=== PATIENT | female | born 1965 | race Caucasian/White ===

== ENCOUNTER 2018-08-20 07:41 | Day surgery (SDC) | payer BC ==
[~2018-08-20 07:41] MED LIST: Lactated Ringers 1,000 ML IV SCH; Lidocaine 2% 5 ML SDV ONE; Propofol 200 MG/20 ML SDV ONE; Sodium Chloride 0.9% 10 ML Syringe FLUSH PRN; Sodium Chloride 0.9% 2.5 ML Syringe FLUSH PRN; fentaNYL 100 MCG/2 ML SDV ONE
--- NOTE | 2018-08-20 08:41 | PCM.PREANE ---
Preanesthetic Assessment - Anesthesia/Transfusion/Family Hx Anesthesia History: Prior Anesthesia Without Reaction Family History of Anesthesia Reaction: No Transfusion History: No Prior Transfusion(s) - Review of Systems General: No Symptoms Pulmonary: No Symptoms Cardiovascular: No Symptoms Neurological: No Symptoms Other: Reports: None - Physical Assessment NPO Status Date: 08/19/18 Height: 5 ft 5 in Weight: 61.689 kg ASA Class: 2 Mental Status: Alert & Oriented x3 Airway Class: Mallampati = 2 Dentition: Reports: Normal Dentition ROM/Head Extension: Full Lungs: Clear to Auscultation, Normal Respiratory Effort Cardiovascular: Regular Rate, Regular Rhythm - Allergies Allergies/Adverse Reactions: Allergies Allergy/AdvReac Type Severity Reaction Status Date / Time mold Allergy Sneezing Verified 08/15/18 14:31 dust Allergy Sneezing Uncoded 08/15/18 14:31 - Blood Blood Available: No - Anesthesia Plan Pre-Op Medication Ordered: None - Acknowledgements Anesthesia Type Planned: MAC Pt an Appropriate Candidate for the Planned Anesthesia: Yes Alternatives and Risks of Anesthesia Discussed w Pt/Guardian: Yes Pt/Guardian Understands and Agrees with Anesthesia Plan: Yes PreAnesthesia Questionnaire HEENT History: Reports: Allergic Rhinitis, Glaucoma, Other (See Below) Other HEENT History: wears glasses occasionally Gastrointestinal History: Reports: GERD, Helicobacter Pylori Musculoskeletal History: Reports: Fracture Other Musculoskeletal History: hx of fx wrist - Past Surgical History HEENT Surgical History: Reports: Naso-Sinus Surgery - SUBSTANCE USE Smoking Status *Q: Never Smoker Recreational Drug Use History: No - HOME MEDS Home Medications: Home Meds Azelastine HCl 1 spray NASBOTH BID PRN 08/15/18 [History] Cholecalciferol (Vitamin D3) [Vitamin D3] 2,000 unit PO DAILY 08/15/18 [History] Latanoprost/Pf [Latanoprost 0.005% Eye Drop] 1 drop EYEBOTH BEDTIME 08/15/18 [ History] Loratadine/Pseudoephedrine [Allergy Relief D-24Hr Tablet] 1 tab PO DAILY PRN [History] Multivitamin [Daily Multiple Vitamin] 1 tab PO DAILY 08/15/18 [History] Omeprazole 20 mg PO DAILY PRN 08/15/18 [History] Tretinoin/Emollient Base [Tretinoin 0.05% Emollient Crm] 1 dose TOP BEDTIME PRN 08/15/18 [History] - CURRENT (IN HOUSE) MEDS Current Meds: Current Medications Lactated Ringer's (Ringers, Lactated) 1,000 mls @ 125 mls/hr IV ASDIRECTED FERN Sodium Chloride (Saline Flush) 10 ml FLUSH ASDIRECTED PRN PRN Reason: Keep Vein Open Sodium Chloride (Saline Flush) 2.5 ml FLUSH ASDIRECTED PRN PRN Reason: Keep Vein Open Sodium Chloride (Saline Flush) 10 ml FLUSH ASDIRECTED PRN PRN Reason: Keep Vein Open Sodium Chloride (Saline Flush) 2.5 ml FLUSH ASDIRECTED PRN PRN Reason: Keep Vein Open Discontinued Medications Fentanyl (Sublimaze) Confirm Administered Dose 100 mcg .ROUTE .STK-MED ONE Stop: 08/20/18 07:39 Lidocaine (Xylocaine-Mpf 2%) Confirm Administered Dose 5 ml .ROUTE .STK-MED ONE Stop: 08/20/18 07:39 Propofol (Diprivan 20 Ml) Confirm Administered Dose 400 mg .ROUTE .STK-MED ONE Stop: 08/20/18 07:39
--- NOTE | 2018-08-20 10:37 | PCM.OPNOTE ---
- General Post-Op/Procedure Note Date of Surgery/Procedure: 08/20/18 Operative Procedure(s): Diagnostic EGD and screening colonoscopy Findings: Normal EGD, rectal polyp Pre Op Diagnosis: Heartburn, colon cancer screening Post-Op Diagnosis: Heartburn, rectal polyp Anesthesia Technique: [facility] – [place], [place] Primary Surgeon: Carrie Gibbs Condition: Good
--- NOTE | 2018-08-20 10:52 | PCM.POSTAN ---
POST ANESTHESIA ASSESSMENT - MENTAL STATUS Mental Status: Alert, Oriented - RESPIRATORY Respiratory Status: Respiratory Rate WNL, Airway Patent, O2 Saturation Stable - CARDIOVASCULAR CV Status: Pulse Rate WNL, Blood Pressure Stable - GASTROINTESTINAL GI Status: No Symptoms - POST OP HYDRATION Hydration Status: Adequate & Stable
--- NOTE | 2018-08-20 10:52 | PCM48HPAN ---
Post Anesthesia Note - EVALUATION WITHIN 48HRS OF ANESTHETIC Vital Signs in Normal Range: Yes Patient Participated in Evaluation: Yes Respiratory Function Stable: Yes Airway Patent: Yes Cardiovascular Function Stable: Yes Hydration Status Stable: Yes Pain Control Satisfactory: Yes Nausea and Vomiting Control Satisfactory: Yes Mental Status Recovered: Yes Resp Rate: 12
--- NOTE | 2018-08-20 13:43 | OR ---
SURGEON: MIRA CAST MD DATE OF PROCEDURE: 08/20/2018 PREOPERATIVE DIAGNOSIS: Heartburn, screening colonoscopy. POSTOPERATIVE DIAGNOSIS: Normal EGD, rectal polyp. PROCEDURE PERFORMED: Diagnostic EGD, screening colonoscopy. ANESTHESIA: MAC. INSTRUMENT USED: Olympus endoscope, Olympus colonoscope. EXTENT OF EXAM: To the second portion of duodenum, to the cecum. PREPARATION: Good. LIMITATIONS: None. INDICATION FOR EXAMINATION: The patient is a 53-year-old female who presents with ongoing heartburn after H. pylori infection four years ago. She is also in need of a screening colonoscopy. I explained the need for a diagnostic EGD and screening colonoscopy. I explained the procedures as well as the expected perioperative course. I explained the risks including bleeding, infection, or damage to surrounding structures including perforation. The patient verbalized understanding and wishes to proceed. PROCEDURE IN DETAIL: The patient is brought to the endoscopy suite and placed in left lateral decubitus position. A time-out was completed verifying the patient's name, age, date of , allergies, and procedure to be performed. A bite block was placed in the patient's mouth. After adequate sedation was achieved, a well lubricated endoscope was placed in the patient's mouth and advanced under direct visualization to the second portion of duodenum. This appeared normal and a photograph was taken. The scope was then fully withdrawn while examining the color, texture, anatomy, and integrity mucosa of the upper GI tract. The duodenum appeared normal. The scope was brought in the stomach and a photograph taken of the GE junction as well as the pylorus. Both appeared normal. The gastric mucosa was free of gross inflammation or ulceration. Biopsies were taken the gastric antrum, body, and fundus and sent for histologic review and H. pylori testing. The scope was then brought into the distal esophagus and a photograph taken of the GE junction from above. This appeared normal. The esophagus itself appeared to be normal with no evidence of esophagitis. The remainder of the esophageal mucosa was free of pathology. The scope was removed and this portion of procedure was terminated. A digital rectal exam was performed. This exam was within normal limits. A well lubricated colonoscope was inserted in the rectum and advanced under direct visualization to the level of the cecum. The cecum was identified by both visual and anatomic landmarks. A photograph was taken the cecal cap. The scope was fully withdrawn while examining the color, texture, anatomy, and integrity of the mucosa from the cecum to the anal canal. The patient was found to have a small 2 to 3 mm sessile polyp within the rectum. This was removed using a cold biopsy forceps. The remainder of the colon appeared normal. The scope was retroflexed within the rectum to allow visualization of the anal canal opening. This appeared normal and a photograph was taken. The scope was then straightened out and fully withdrawn. The cecum to anus time was 7 minutes. The patient tolerated the procedure well and was taken to the PACU in stable condition. ENDOSCOPIC: Normal EGD, rectal polyp. RECOMMENDATIONS: Follow up in clinic in 2 weeks. ARMANDO HDEZ /[id number] MATHEW
== END 2018-08-20 11:12 | disposition home or self-care (01) ==
LOC: MW.SDS 07:41
PROVIDERS: ATTEND Surgery
DX: Z12.11 Encounter for screening for malignant neoplasm of colon (principal); R12 Heartburn; D12.8 Benign neoplasm of rectum; Z86.19 Personal history of other infectious and parasitic diseases; Z79.899 Other long term (current) drug therapy
CPT/HCPCS: 43239; 45380; J2704; J3010; J7120; 88305; 88312